=== PATIENT | male | born 1950 | race Caucasian/White ===

== ENCOUNTER → 2017-02-02 | Outpatient (CLI) | payer MEDICARE, OTHER ==
[2017-02-02 13:45] LABS: CHLORIDE,CL 103 mmol/L (98-110); SODIUM,NA 139 mmol/L (136-146)
--- NOTE | 2017-02-02 14:32 | CR ---
EXAMINATION: Two-view chest (PA and Lateral views). HISTORY: Type 2 diabetes. FINDINGS: The trachea is midline. The cardiomediastinal silhouette is within normal limits there is a trace le ft basilar atelectasis. No pleural effusion or pneumothorax. Median sternotomy wires are noted. Osseous structures appear unremarkable. IMPRESSION: No acute cardiopulmonary process.
== END ==
LOC: MW.CHIM 13:03
PROVIDERS: ATTEND Internal Medicine
DX: Z01.818 Encounter for other preprocedural examination (principal); E11.9 Type 2 diabetes mellitus without complications; I10 Essential (primary) hypertension; I25.10 Atherosclerotic heart disease of native coronary artery without angina pectoris; T14.8 Other injury of unspecified body region; I21.3 ST elevation (STEMI) myocardial infarction of unspecified site
CPT/HCPCS: 36415; 71020; 71020-26; 80053; 81001; 85025; 85610; 85730; 93005

== ENCOUNTER 2017-05-26 18:02 | Observation (INO) | payer MEDICARE, OTHER ==
[2017-05-26] MEDS ORDERED: Nitroglycerin 2% Oint 1 GM UD Packet TOP ONE (18:23)
[2017-05-26] MEDS ORDERED: Morphine 2 MG/ML Syringe IVPUSH ONE (18:23)
[2017-05-26] MEDS ORDERED: Sodium Chloride 0.9% 2.5 ML Syringe FLUSH PRN ×2 (18:23→22:29)
[2017-05-26] MEDS ORDERED: Ondansetron 4 MG/2 ML SDV IVPUSH ONE (18:23)
[2017-05-26] MEDS ORDERED: Sodium Chloride 0.9% 10 ML Syringe FLUSH PRN ×2 (18:23→22:29)
--- NOTE | 2017-05-26 18:26 | EDM.PDOC ---
ED HPI GENERAL MEDICAL PROBLEM - General Chief Complaint: Chest Pain Stated Complaint: CHEST PAIN Time Seen by Provider: 05/26/17 18:11 - History of Present Illness INITIAL COMMENTS - FREE TEXT/NARRATIVE: HISTORY AND PHYSICAL: History of present illness: Agent 66-year-old male presents a cardiac history including bypass surgery 15 years out who presents with concern of chest pain started earlier today for which gave him one sublingual nitroglycerin this was without improvement he equivocates regarding associated shortness breath palpitations nausea vomiting he did have a angiogram one year prior that was reported to be unremarkable her . Review of systems: As per history of present illness and below otherwise all systems reviewed and negative. Past medical history: As per history of present illness and as reviewed below otherwise noncontributory. Surgical history: As per history of present illness and as reviewed below otherwise noncontributory. Social history: No reported history of drug or alcohol abuse. Family history: As per history of present illness and as reviewed below otherwise noncontributory. Physical exam: HEENT: Atraumatic, normocephalic, pupils reactive, negative for conjunctival pallor or scleral icterus, mucous membranes moist, throat clear, neck supple, nontender, trachea midline. Lungs: Clear to auscultation, breath sounds equal bilaterally, chest nontender. Heart: S1S2, regular, negative for clicks, rubs, or JVD. Abdomen: Soft, nondistended, nontender. Negative for masses or hepatosplenomegaly. Negative for costovertebral tenderness. Pelvis: Stable nontender. Genitourinary: Deferred. Rectal: Deferred. Extremities: Atraumatic, negative for cords or calf pain. Neurovascular unremarkable. Neuro: Awake, alert, oriented. Cranial nerves II through XII unremarkable. Cerebellum unremarkable. Motor and sensory unremarkable throughout. Exam nonfocal. Diagnostics: CBC CMP troponin PT/INR chest x-ray EKG Therapeutics: IV O2 monitor sublingual nitroglycerin Nitropaste 1 inch morphine sulfate 2 mg Zofran 4 mg Impression: #1 acute coronary syndrome #2 history coronary bypass surgery Definitive disposition and diagnosis as appropriate pending reevaluation and review of above. - Related Data Allergies Allergy/AdvReac Type Severity Reaction Status Date / Time pear Allergy Shortness Verified 05/26/17 18:47 of Breath Home Meds: Home Meds Aspirin [Aspirin EC] 1 tab PO DAILY 11/29/15 [History] Carvedilol [Coreg] 1 tab PO BID 11/29/15 [History] FLUoxetine [PROzac] 40 mg PO DAILY 11/29/15 [History] Hydrochlorothiazide [Hydrochlorothiazide] 1 tab PO DAILY 11/29/15 [History] Nitroglycerin [Nitrostat] 1 tab PO ASDIRECTED PRN 11/29/15 [History] atorvaSTATin [Lipitor] 40 mg PO BEDTIME 11/29/15 [History] metFORMIN [Glucophage] 1,000 mg PO BIDMEALS 11/29/15 [History] traZODone 0.5 tab PO DAILY PRN 11/29/15 [History] Clopidogrel [Plavix] 75 mg PO DAILY 02/19/16 [History] Isosorbide Mononitrate [Imdur] 60 mg PO DAILY 05/07/16 [History] Ondansetron [Zofran ODT] 4 mg PO Q6H PRN #12 tab.dis 10/19/16 [Rx] Acetaminophen [Tylenol] 1 tab PO ASDIRECTED PRN 02/02/17 [History] Insulin Glarg,Human.Rec.Analog [LantUS Solostar] 24 units SUBCUT BEDTIME [History] Omeprazole 20 mg PO DAILY PRN 02/02/17 [History] traMADol HCl [Tramadol HCl] 50 mg PO ASDIRECTED PRN 02/02/17 [History] Past Medical History HEENT History: Reports: None Cardiovascular History: Reports: Bypass, CAD, High Cholesterol, Hypertension, [place] , Stents Respiratory History: Reports: None Gastrointestinal History: Reports: Other (See Below) Genitourinary History: Reports: None Neurological History: Reports: None Psychiatric History: Reports: None Endocrine/Metabolic History: Reports: Diabetes, Type II, Obesity/BMI 30+ Hematologic History: Reports: None Immunologic History: Reports: None Oncologic (Cancer) History: Reports: None Dermatologic History: Reports: None - Infectious Disease History Infectious Disease History: Reports: Chicken Pox, Measles, Mumps - Past Surgical History Cardiovascular Surgical History: Reports: Coronary Artery Bypass, Coronary Artery Stent Neurological Surgical History: Reports: C-Spine, Lumbar Spine Musculoskeletal Surgical History: Reports: Other (See Below) Social & Family History - Family History Family Medical History: Unobtainable HEENT: Reports: None - Tobacco Use Smoking Status *Q: Never Smoker Years of Tobacco use: 15 Used Tobacco, but Quit: No Second Hand Smoke Exposure: No - Caffeine Use Caffeine Use: Reports: Soda - Recreational Drug Use Recreational Drug Use: No ED ROS GENERAL - Review of Systems Review Of Systems: ROS reveals no pertinent complaints other than HPI. ED EXAM, GENERAL - Physical Exam Exam: See Below (See dictation) Course - Vital Signs Last Recorded V/S: Last Vital Signs Temp 36.1 C 05/26/17 18:10 Pulse 74 05/26/17 18:55 Resp 18 05/26/17 18:55 BP 121/71 05/26/17 18:55 Pulse Ox 96 05/26/17 18:55 - Orders/Labs/Meds Orders: Active Orders 24 hr Category Date Time Status Cardiac Monitoring [RC] . DIRECTED Care 05/26/17 18:22 Active EKG Documentation Completion [RC] STAT Care 05/26/17 18:22 Active Oxygen Therapy, ED [RC] ASDIRECTED Care 05/26/17 18:22 Active Pulse Oximetry [RC] ASDIRECTED Care 05/26/17 18:23 Active Chest 1V Frontal [CR] Stat Exams 05/26/17 18:23 Taken Sodium Chloride 0.9% [Normal Saline] 1,000 ml Med 05/26/17 18:30 Active IV STAT Sodium Chloride 0.9% [Saline Flush] Med 05/26/17 18:23 Active 10 ml FLUSH ASDIRECTED PRN Sodium Chloride 0.9% [Saline Flush] Med 05/26/17 18:23 Active 2.5 ml FLUSH ASDIRECTED PRN Saline Lock Insert [OM.PC] Stat Oth 05/26/17 18:22 Ordered Medication Orders Sodium Chloride (Normal Saline) 1,000 mls @ 125 mls/hr IV STAT BRITTA Last Admin: 05/26/17 18:33 Dose: 125 mls/hr Sodium Chloride (Saline Flush) 10 ml FLUSH ASDIRECTED PRN PRN Reason: Keep Vein Open Sodium Chloride (Saline Flush) 2.5 ml FLUSH ASDIRECTED PRN PRN Reason: Keep Vein Open Labs: Laboratory Tests 05/26/17 05/26/17 05/26/17 Range/Units 18:24 18:24 18:24 WBC 8.12 (4.0-11.0) K/uL RBC 4.95 (4.50-5.90) M/uL Hgb 15.1 (13.0-17.0) g/dL Hct 43.1 (38.0-50.0) % MCV 87.1 (80.0-98.0) fL MCH 30.5 (27.0-32.0) pg MCHC 35.0 (31.0-37.0) g/dL RDW Std Deviation 43.6 (28.0-62.0) fl RDW Coeff of Susan 14 (11.0-15.0) % Plt Count 199 (150-400) K/uL MPV 11.40 (7.40-12.00) fL Neut % (Auto) 52.3 (48.0-80.0) % Lymph % (Auto) 34.5 (16.0-40.0) % [place] % (Auto) 10.0 (0.0-15.0) % Eos % (Auto) 2.2 (0.0-7.0) % Baso % (Auto) 1.0 (0.0-1.5) % Neut # (Auto) 4.3 (1.4-5.7) K/uL Lymph # (Auto) 2.8 H (0.6-2.4) K/uL [place] # (Auto) 0.8 (0.0-0.8) K/uL Eos # (Auto) 0.2 (0.0-0.7) K/uL Baso # (Auto) 0.1 (0.0-0.1) K/uL Nucleated RBC % 0.0 /100WBC Nucleated RBCs # 0 K/uL INR 1.10 (0.86-1.11) Sodium 138 (136-146) mmol/L Potassium 3.5 (3.5-5.1) mmol/L Chloride 104 (98-110) mmol/L Carbon Dioxide 21 (21-31) mmol/L BUN 18 (6.0-23.0) mg/dL Creatinine 1.2 (0.6-1.5) mg/dL Est Cr Clr Drug Dosing 71.35 mL/min Estimated GFR (MDRD) > 60.0 ml/min Glucose 82 (60-110) mg/dL Calcium 9.8 (8.8-10.8) mg/dL Total Bilirubin 1.6 H (0.1-1.5) mg/dL AST 30 (5-40) IU/L ALT 10 (8-54) IU/L Alkaline Phosphatase 85 (40-150) Troponin I (0.0-0.29) NG/ML B-Natriuretic Peptide (<100) PG/ML Total Protein 7.9 (6.0-8.0) g/dL Albumin 4.4 (3.4-4.8) g/dL Globulin 3.5 (2.0-3.5) g/dL Albumin/Globulin Ratio 1.3 (1.3-2.8) 05/26/17 05/26/17 Range/Units 18:24 18:24 WBC (4.0-11.0) K/uL RBC (4.50-5.90) M/uL Hgb (13.0-17.0) g/dL Hct (38.0-50.0) % MCV (80.0-98.0) fL MCH (27.0-32.0) pg MCHC (31.0-37.0) g/dL RDW Std Deviation (28.0-62.0) fl RDW Coeff of Susan (11.0-15.0) % Plt Count (150-400) K/uL MPV (7.40-12.00) fL Neut % (Auto) (48.0-80.0) % Lymph % (Auto) (16.0-40.0) % [place] % (Auto) (0.0-15.0) % Eos % (Auto) (0.0-7.0) % Baso % (Auto) (0.0-1.5) % Neut # (Auto) (1.4-5.7) K/uL Lymph # (Auto) (0.6-2.4) K/uL [place] # (Auto) (0.0-0.8) K/uL Eos # (Auto) (0.0-0.7) K/uL Baso # (Auto) (0.0-0.1) K/uL Nucleated RBC % /100WBC Nucleated RBCs # K/uL INR (0.86-1.11) Sodium (136-146) mmol/L Potassium (3.5-5.1) mmol/L Chloride (98-110) mmol/L Carbon Dioxide (21-31) mmol/L BUN (6.0-23.0) mg/dL Creatinine (0.6-1.5) mg/dL Est Cr Clr Drug Dosing mL/min Estimated GFR (MDRD) ml/min Glucose (60-110) mg/dL Calcium (8.8-10.8) mg/dL Total Bilirubin (0.1-1.5) mg/dL AST (5-40) IU/L ALT (8-54) IU/L Alkaline Phosphatase (40-150) Troponin I < 0.10 (0.0-0.29) NG/ML B-Natriuretic Peptide < 15 (<100) PG/ML Total Protein (6.0-8.0) g/dL Albumin (3.4-4.8) g/dL Globulin (2.0-3.5) g/dL Albumin/Globulin Ratio (1.3-2.8) Meds: Medications Generic Name Dose Route Start Last Admin Trade Name Freq PRN Reason Stop Dose Admin Sodium Chloride 1,000 mls @ 125 mls/hr 05/26/17 18:30 05/26/17 18:33 Normal Saline IV 125 mls/hr STAT RBITTA Administration Sodium Chloride 10 ml 05/26/17 18:23 Saline Flush FLUSH ASDIRECTED PRN Keep Vein Open Sodium Chloride 2.5 ml 05/26/17 18:23 Saline Flush FLUSH ASDIRECTED PRN Keep Vein Open Discontinued Medications Generic Name Dose Route Start Last Admin Trade Name Freq PRN Reason Stop Dose Admin Morphine Sulfate 2 mg 05/26/17 18:23 05/26/17 18:32 Morphine IVPUSH 05/26/17 18:24 2 mg ONETIME ONE Administration Nitroglycerin 1 gm 05/26/17 18:23 05/26/17 18:43 Nitro-Bid 2% TOP 05/26/17 18:24 1 gm ONETIME ONE Administration Nitroglycerin 0.4 mg 05/26/17 18:23 05/26/17 18:37 Nitrostat SL 05/26/17 18:34 0.4 mg Q5M PRN Administration Chest Pain Ondansetron HCl 4 mg 05/26/17 18:23 05/26/17 18:33 Zofran IVPUSH 05/26/17 18:24 4 mg ONETIME ONE Administration Departure - Departure Time of Disposition: 19:15 Disposition: Refer to Observation Condition: Good Clinical Impression: Chest pain - Discharge Information Forms: ED Department Discharge - My Orders Last 24 Hours: My Active Orders 05/26/17 18:22 Cardiac Monitoring [RC] . DIRECTED EKG Documentation Completion [RC] STAT Oxygen Therapy, ED [RC] ASDIRECTED Saline Lock Insert [OM.PC] Stat 05/26/17 18:23 Pulse Oximetry [RC] ASDIRECTED Chest 1V Frontal [CR] Stat Sodium Chloride 0.9% [Saline Flush] 10 ml FLUSH ASDIRECTED PRN Sodium Chloride 0.9% [Saline Flush] 2.5 ml FLUSH ASDIRECTED PRN 05/26/17 18:30 Sodium Chloride 0.9% [Normal Saline] 1,000 ml IV STAT - Assessment/Plan Last 24 Hours: My Active Orders 05/26/17 18:22 Cardiac Monitoring [RC] . DIRECTED EKG Documentation Completion [RC] STAT Oxygen Therapy, ED [RC] ASDIRECTED Saline Lock Insert [OM.PC] Stat 05/26/17 18:23 Pulse Oximetry [RC] ASDIRECTED Chest 1V Frontal [CR] Stat Sodium Chloride 0.9% [Saline Flush] 10 ml FLUSH ASDIRECTED PRN Sodium Chloride 0.9% [Saline Flush] 2.5 ml FLUSH ASDIRECTED PRN 05/26/17 18:30 Sodium Chloride 0.9% [Normal Saline] 1,000 ml IV STAT
[2017-05-26] MEDS: Nitroglycerin 0.4 MG Tab.SL SL PRN ×2 (18:32→18:37)
[2017-05-26] MEDS: Sodium Chloride 0.9% 1,000 ML IV SCH (18:33)
[2017-05-26 19:03] LABS: CHLORIDE,CL 104 mmol/L (98-110); SODIUM,NA 138 mmol/L (136-146)
--- NOTE | 2017-05-26 22:25 | PCM.HP ---
H&P History of Present Illness - General Date of Service: 05/26/17 Admit Problem/Dx: Admission Diagnosis/Problem Admission Diagnosis/Problem Chest pain Source of Information: Patient, Provider - History of Present Illness Initial Comments - Free Text/Narative: He presented to the ED with complaint of chest pain as per HPI. He is pain free now. He has known prior history of CAD. chest pain Pain Score (Numeric/FACES): 2 - Related Data Allergies/Adverse Reactions: Allergies Allergy/AdvReac Type Severity Reaction Status Date / Time pear Allergy Shortness Verified 05/26/17 19:21 of Breath Home Medications: Home Meds Aspirin [Aspirin EC] 1 tab PO DAILY 11/29/15 [History] Carvedilol [Coreg] 1 tab PO BID 11/29/15 [History] FLUoxetine [PROzac] 40 mg PO DAILY 11/29/15 [History] Hydrochlorothiazide [Hydrochlorothiazide] 1 tab PO DAILY 11/29/15 [History] Nitroglycerin [Nitrostat] 1 tab PO ASDIRECTED PRN 11/29/15 [History] atorvaSTATin [Lipitor] 40 mg PO BEDTIME 11/29/15 [History] metFORMIN [Glucophage] 800 mg PO BIDMEALS 11/29/15 [History] traZODone 0.5 tab PO DAILY PRN 11/29/15 [History] Clopidogrel [Plavix] 75 mg PO DAILY 02/19/16 [History] Ondansetron [Zofran ODT] 4 mg PO Q6H PRN #12 tab.dis 10/19/16 [Rx] Acetaminophen [Tylenol] 1 tab PO ASDIRECTED PRN 02/02/17 [History] Insulin Glarg,Human.Rec.Analog [LantUS Solostar] 24 units SUBCUT BEDTIME [History] Omeprazole 20 mg PO DAILY PRN 02/02/17 [History] traMADol HCl [Tramadol HCl] 50 mg PO ASDIRECTED PRN 02/02/17 [History] Insulin Glarg,Human.Rec.Analog [LantUS Solostar] 19 unit SQ BEDTIME 05/26/17 [ History] Lisinopril [Lisinopril] 1 tab PO DAILY 05/26/17 [History] Past Medical History HEENT History: Reports: None Cardiovascular History: Reports: Bypass, CAD, High Cholesterol, Hypertension, [place] , Stents Respiratory History: Reports: Sleep Apnea Gastrointestinal History: Reports: None Genitourinary History: Reports: None Musculoskeletal History: Reports: Back Pain, Chronic, Other (See Below) Other Musculoskeletal History: right hip pain Neurological History: Reports: None Psychiatric History: Reports: None Endocrine/Metabolic History: Reports: Diabetes, Type II, Obesity/BMI 30+ Hematologic History: Reports: None Immunologic History: Reports: None Oncologic (Cancer) History: Reports: None Dermatologic History: Reports: None - Infectious Disease History Infectious Disease History: Reports: Chicken Pox, Measles, Mumps - Past Surgical History Head Surgeries/Procedures: Reports: None Cardiovascular Surgical History: Reports: Coronary Artery Bypass, Coronary Artery Stent Neurological Surgical History: Reports: C-Spine, Lumbar Spine Musculoskeletal Surgical History: Reports: Hip Replacement, Knee Replacement Social & Family History - Family History Family Medical History: Unobtainable HEENT: Reports: None - Tobacco Use Smoking Status *Q: Former Smoker Years of Tobacco use: 10 Used Tobacco, but Quit: Yes Month Tobacco Last Used: unknown Second Hand Smoke Exposure: No - Caffeine Use Caffeine Use: Reports: Coffee - Alcohol Use Alcohol Use Comment: he does not drink alcohol - Recreational Drug Use Recreational Drug Use: No H&P Review of Systems - Review of Systems: Review Of Systems: See Below General: Denies: Fever, Chills HEENT: Denies: Sinus Congestion, Sore Throat Pulmonary: Denies: Shortness of Breath, Cough, Sputum Cardiovascular: Reports: Chest Pain (as per HPI) Gastrointestinal: Denies: Abdominal Pain, Black Stool, Bloody Stool, Hematemesis , Hematochezia Genitourinary: Denies: Dysuria, Frequency, Pain, Urgency, Hematuria Skin: Denies: Cyanosis Psychiatric: Denies: Confusion Neurological: Denies: Seizure Exam - Exam Exam: See Below - Vital Signs Vital Signs: Last Vital Signs Temp 97 F 05/26/17 18:10 Pulse 68 05/26/17 20:38 Resp 18 05/26/17 20:38 BP 128/75 05/26/17 20:38 Pulse Ox 95 05/26/17 20:38 Weight: 118.025 kg - Exam General: Alert, Oriented, Cooperative HEENT: EOMI. No: Mucosa Moist & [place] Lungs: No: Clear to Auscultation, Normal Respiratory Effort Cardiovascular: No: Regular Rate, Regular Rhythm, Systolic Murmur, Diastolic Murmur Abdomen: Soft. No: Tenderness (Male) Exam: Deferred Rectal (Males) Exam: Deferred Extremities: No: Edema Neurological: Cranial Nerves Intact, Normal Speech Neuro Extensive - Motor, Sensory, Reflexes: No: Ataxia, Facial palsy (L), Facial Palsy (R) - Patient Data Result Diagrams: 05/26/17 18:24 05/26/17 18:24 Isaiah Results Last 24 hrs: EKG: NSR with prolonged MS interval CXR: No acute disease *Q Meaningful Use (ADM) - VTE *Q VTE Criteria *Q: - Stroke *Q Stroke Criteria *Q: - AMI *Q AMI Criteria *Q: - Problem List (1) Chest pain SNOMED Code(s): 01681357 ICD Code: R07.9 - CHEST PAIN, UNSPECIFIED Status: Acute Current Visit: Yes (2) CAD (coronary artery disease) SNOMED Code(s): 12531623 ICD Code: I25.10 - ATHSCL HEART DISEASE OF [place] CORONARY ARTERY W/O ANG PCTRS Status: Acute Current Visit: Yes Problem List Initiated/Reviewed/Updated: Yes Orders Last 24hrs: Medication Orders Sodium Chloride (Normal Saline) 1,000 mls @ 125 mls/hr IV STAT BRITTA Last Admin: 05/26/17 18:33 Dose: 125 mls/hr Sodium Chloride (Saline Flush) 10 ml FLUSH ASDIRECTED PRN PRN Reason: Keep Vein Open Sodium Chloride (Saline Flush) 2.5 ml FLUSH ASDIRECTED PRN PRN Reason: Keep Vein Open Assessment/Plan Comment:: troponins will discuss with 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 Jace Valladares MD
[2017-05-26] MEDS ORDERED: Temazepam 15 MG Cap PO PRN (22:29)
[2017-05-26] MEDS ORDERED: Docusate Sodium 100 MG Cap PO PRN (22:29)
[2017-05-26] MEDS ORDERED: Acetaminophen 325 MG Tab PO PRN (22:29)
[2017-05-26] MEDS ORDERED: Omeprazole 20 MG Cap.CR PO PRN (22:32)
[2017-05-26] MEDS ORDERED: Nitroglycerin 0.4 MG Tab.SL SL PRN (22:32)
[2017-05-26] MEDS ORDERED: traMADol 50 MG Tab PO PRN (22:32)
[2017-05-26] MEDS: Nitroglycerin 2% Oint 1 GM UD Packet TOP SCH (23:47)
[2017-05-27] MEDS: Sodium Chloride 0.9% 1,000 ML IV SCH ×2 (03:02→10:41)
[2017-05-27 05:49] LABS: CHLORIDE,CL 106 mmol/L (98-110); SODIUM,NA 141 mmol/L (136-146)
[2017-05-27] MEDS: Nitroglycerin 2% Oint 1 GM UD Packet TOP SCH ×2 (05:50→12:25)
[2017-05-27] MEDS ORDERED: Insulin Glargine,Human Rec. Analog 100 Units/ML 3 ML Pen SUBCUT SCH ×2 (07:30→21:00)
[2017-05-27] MEDS ORDERED: metFORMIN 500 MG Tab PO SCH (08:00)
[2017-05-27] MEDS ORDERED: Isosorbide Mononitrate 60 MG Tab.ER PO SCH (09:00)
[2017-05-27] MEDS ORDERED: Clopidogrel 75 MG Tab PO SCH (09:00)
[2017-05-27] MEDS ORDERED: Hydrochlorothiazide 25 MG Tab PO SCH (09:00)
[2017-05-27] MEDS ORDERED: Aspirin 325 MG Tab.EC PO SCH (09:00)
[2017-05-27] MEDS ORDERED: Carvedilol 12.5 MG Tab PO SCH (09:00)
[2017-05-27] MEDS ORDERED: FLUoxetine 20 MG Cap PO SCH (09:00)
[2017-05-27] MEDS ORDERED: Lisinopril 5 MG Tab PO SCH (09:00)
--- NOTE | 2017-05-27 10:18 | CR ---
EXAM DATE: 05/26/17 PATIENT'S AGE: 66 Patient: AMADOR GARCIA Facility: [place], [place] Site . Site : [id number] Study: XRay Chest [id number]/27/2017 7:12:11 PM Ordering Physician: Ashley Christianson Final Report: Indication: Chest and Technique: Chest 1 view Comparison: 02/02/2017 Findings/Impression: Cardiovascular and mediastinum: Stable cardiomediastinal silhouette. Sternotomy sutures again seen. Lungs and pleural space: No consolidation or gross pleural effusions. Bones and soft tissues: Postsurgical changes in the lower cervical spine Dictated by Herminio Hyde MD @ 05/26/2017 7:35:09 PM Dictated by: Herminio Hyde MD @ 05/26/2017 19:35:21 (Electronic Signature) Report Signed by Proxy. SHANAE
--- NOTE | 2017-05-27 13:00 | PCM.DCSUM1 ---
Discharge Summary - Hospital Course HPI Initial Comments: 66 yo male admitted 05/26/17 for atypical chest pain with pmh of CABG, Htn, dylipidemia. Brief History: Patient intially presented to ED on 05/26/17 for chest pain that had started earilier that day. He reported substernal chest pain without radiation and no associate shortness of breath, palpitations, nausea, or vomiting. His gave him one sublingual nitroglycerin which did not seem to help. He has history of CABG 15 yrs ago and reported that he had an angiogram 1 year ago that was reported to be unremarkable. He did admit to feeling "very stressed" lately and thinks this may have been what started the chest pain. The pain was not similar to previous episodes when he had his CT. - Discharge Data Discharge Date: 05/27/17 Discharge Disposition: Home, Self-Care 01 Condition: Good - Patient Summary/Data Hospital Course: 66 yo male admitted 05/26/17 for atypical chest pain with pmh of CABG, Htn, dylipidemia. Patient intially presented to ED on 05/26/17 for chest pain that had started earilier that day. He reported substernal chest pain without radiation and no associate shortness of breath, palpitations, nausea, or vomiting. His gave him one sublingual nitroglycerin which did not seem to help. He has history of CABG 15 yrs ago and reported that he had an angiogram 1 year ago that was reported to be unremarkable. He did admit to feeling "very stressed" lately and thinks this may have been what started the chest pain. The pain was not similar to previous episodes when he had his CT. In ED, initial troponin was negative. ECG showed no acute ischemic changes and rest of labs were unremarkable. Patient was admitted for observation and serial troponins. Patient did well throughout his stay with no additional chest pain. Serial troponins were negative. He was discharged in good condition with follow-up with his PCP Dr. Asif as well as Dr. Luz, guide cruise. We did try to contact Dr. Luz but he was unavailable. Chest pain was most likely stress related however patient does have significant cardiac history so should be followed closely. - Patient Instructions Diet: Heart Healthy Diet Activity: Rest and Relax Today Driving: Do Not Drive Showering/Bathing: May Shower Notify Provider of: Fever, Increased Pain, Swelling and Redness, Nausea and/or Vomiting Other/Special Instructions: Follow-up with Dr. Asif and Dr. Luz. Return to ED if having new symptoms. - Discharge Plan Home Medications: Home Meds Aspirin [Aspirin EC] 1 tab PO DAILY 11/29/15 [History] Carvedilol [Coreg] 1 tab PO BID 11/29/15 [History] FLUoxetine [PROzac] 20 mg PO DAILY 11/29/15 [History] Hydrochlorothiazide 1 tab PO DAILY 11/29/15 [History] Nitroglycerin [Nitrostat] 1 tab PO ASDIRECTED PRN 11/29/15 [History] atorvaSTATin [Lipitor] 40 mg PO BEDTIME 11/29/15 [History] metFORMIN [Glucophage] 1,000 mg PO BIDMEALS 11/29/15 [History] traZODone 0.5 tab PO DAILY PRN 11/29/15 [History] Clopidogrel [Plavix] 75 mg PO DAILY 02/19/16 [History] Ondansetron [Zofran ODT] 4 mg PO Q6H PRN #12 tab.dis 10/19/16 [Rx] Acetaminophen [Tylenol] 1 tab PO ASDIRECTED PRN 02/02/17 [History] Insulin Glarg,Human.Rec.Analog [LantUS Solostar] 24 units SUBCUT BEDTIME [History] Omeprazole 20 mg PO DAILY PRN 02/02/17 [History] traMADol HCl [Tramadol HCl] 50 mg PO ASDIRECTED PRN 02/02/17 [History] Insulin Glarg,Human.Rec.Analog [LantUS Solostar] 38 unit SQ ACBREAKFAST [History] Isosorbide Mononitrate [Isosorbide Mononitrate ER] 60 mg PO DAILY 05/26/17 [ History] Lisinopril 1 tab PO DAILY 05/26/17 [History] Patient Handouts: Coronary Artery Disease, Male, Chest Wall Pain, [id number] Forms: ED Department Discharge Referrals: Marcela Fernandez MD [Ordering Only Provider] - 06/04/17 2:30 pm Dino Asif MD [Primary Care Provider] - 06/04/17 8:30 am - Discharge Summary/Plan Comment DC Time >30 min.: Yes Discharge Summary/Plan Comment: 66 yo male admitted 05/26/17 for atypical chest pain with pmh of CABG, Htn, dylipidemia. Patient intially presented to ED on 05/26/17 for chest pain that had started earilier that day. He reported substernal chest pain without radiation and no associate shortness of breath, palpitations, nausea, or vomiting. His gave him one sublingual nitroglycerin which did not seem to help. He has history of CABG 15 yrs ago and reported that he had an angiogram 1 year ago that was reported to be unremarkable. He did admit to feeling "very stressed" lately and thinks this may have been what started the chest pain. The pain was not similar to previous episodes when he had his CT. In ED, initial troponin was negative. ECG showed no acute ischemic changes and rest of labs were unremarkable. Patient was admitted for observation and serial troponins. Patient did well throughout his stay with no additional chest pain. Serial troponins were negative. He was discharged in good condition with follow-up with his PCP Dr. Asif as well as Dr. Luz, guide cruise. We did try to contact Dr. Luz but he was unavailable. Chest pain was most likely stress related however patient does have significant cardiac history so should be followed closely. - General Info Date of Service: 05/27/17 Admission Dx/Problem (Free Text: Admission Diagnosis/Problem Admission Diagnosis/Problem Chest pain Subjective Update: Doing well this morning with no further episodes of chest pain. Denies any sob , palpitations, nausea, vomiting, diarrhea, abd pain. Feeling well and would like to be discharged. - Review of Systems General: Denies: Fever, Weakness, Fatigue HEENT: Denies: dysphasia, sinus congestion Pulmonary: Denies: shortness of breath, pleuritic chest pain, cough, sputum Cardiovascular: Denies: Chest Pain, Palpitations Gastrointestinal: Denies: Abdominal pain, Constipation, Diarrhea, Vomiting Genitourinary: Denies: dysuria Musculoskeletal: Denies: neck pain, back pain Skin: Denies: cyanosis Neurological: Denies: Confusion, Dizziness, Headache Psychiatric: Denies: confusion - Patient Data Vitals - Most Recent: Last Vital Signs Temp 36.0 C 05/27/17 08:00 Pulse 72 05/27/17 08:51 Resp 22 H 05/27/17 08:00 BP 156/68 H 05/27/17 08:51 Pulse Ox 97 05/27/17 08:00 Weight - Most Recent: 118.025 kg I&O - Last 24 hours: Intake & Output 05/26/17 05/27/17 05/27/17 22:59 06:59 14:59 Intake Total 1892 Output Total 740 Balance 1152 Lab Results - Last 24 hrs: Laboratory Results - last 24 hr 05/26/17 05/26/17 05/27/17 Range/Units 22:53 23:25 05:08 WBC (4.0-11.0) K/uL RBC (4.50-5.90) M/uL Hgb (13.0-17.0) g/dL Hct (38.0-50.0) % MCV (80.0-98.0) fL MCH (27.0-32.0) pg MCHC (31.0-37.0) g/dL RDW Std Deviation (28.0-62.0) fl RDW Coeff of Susan (11.0-15.0) % Plt Count (150-400) K/uL MPV (7.40-12.00) fL Neut % (Auto) (48.0-80.0) % Lymph % (Auto) (16.0-40.0) % Caswell % (Auto) (0.0-15.0) % Eos % (Auto) (0.0-7.0) % Baso % (Auto) (0.0-1.5) % Neut # (Auto) (1.4-5.7) K/uL Lymph # (Auto) (0.6-2.4) K/uL Caswell # (Auto) (0.0-0.8) K/uL Eos # (Auto) (0.0-0.7) K/uL Baso # (Auto) (0.0-0.1) K/uL Nucleated RBC % /100WBC Nucleated RBCs # K/uL Sodium (136-146) mmol/L Potassium (3.5-5.1) mmol/L Chloride (98-110) mmol/L Carbon Dioxide (21-31) mmol/L BUN (6.0-23.0) mg/dL Creatinine (0.6-1.5) mg/dL Est Cr Clr Drug Dosing mL/min Estimated GFR (MDRD) ml/min Glucose (60-110) mg/dL POC Glucose 230 H (60-110) mg/dL Calcium (8.8-10.8) mg/dL Magnesium (1.5-2.3) mEq/L Troponin I < 0.10 < 0.10 (0.0-0.29) NG/ML 05/27/17 05/27/17 05/27/17 Range/Units 05:08 05:08 06:31 WBC 5.80 (4.0-11.0) K/uL RBC 4.46 L (4.50-5.90) M/uL Hgb 13.3 (13.0-17.0) g/dL Hct 39.2 (38.0-50.0) % MCV 87.9 (80.0-98.0) fL MCH 29.8 (27.0-32.0) pg MCHC 33.9 (31.0-37.0) g/dL RDW Std Deviation 44.5 (28.0-62.0) fl RDW Coeff of Susan 14 (11.0-15.0) % Plt Count 146 L (150-400) K/uL MPV 11.60 (7.40-12.00) fL Neut % (Auto) 53.4 (48.0-80.0) % Lymph % (Auto) 32.8 (16.0-40.0) % Caswell % (Auto) 10.0 (0.0-15.0) % Eos % (Auto) 2.6 (0.0-7.0) % Baso % (Auto) 1.2 (0.0-1.5) % Neut # (Auto) 3.1 (1.4-5.7) K/uL Lymph # (Auto) 1.9 (0.6-2.4) K/uL Caswell # (Auto) 0.6 (0.0-0.8) K/uL Eos # (Auto) 0.2 (0.0-0.7) K/uL Baso # (Auto) 0.1 (0.0-0.1) K/uL Nucleated RBC % 0.0 /100WBC Nucleated RBCs # 0 K/uL Sodium 141 (136-146) mmol/L Potassium 4.1 (3.5-5.1) mmol/L Chloride 106 (98-110) mmol/L Carbon Dioxide 25 (21-31) mmol/L BUN 18 (6.0-23.0) mg/dL Creatinine 1.0 (0.6-1.5) mg/dL Est Cr Clr Drug Dosing 85.63 mL/min Estimated GFR (MDRD) > 60.0 ml/min Glucose 93 (60-110) mg/dL POC Glucose 89 (60-110) mg/dL Calcium 8.6 L (8.8-10.8) mg/dL Magnesium 1.5 (1.5-2.3) mEq/L Troponin I (0.0-0.29) NG/ML Med Orders - Current: Current Medications Acetaminophen (Tylenol) 650 mg PO Q4H PRN PRN Reason: Pain (Mild 1-3)/fever Aspirin (Ecotrin) 325 mg PO DAILY [facility] Last Admin: 05/27/17 08:50 Dose: 325 mg Atorvastatin Calcium (Lipitor) 40 mg PO BEDTIME [facility] Carvedilol (Coreg) 12.5 mg PO BID [facility] Last Admin: 05/27/17 08:51 Dose: 12.5 mg Clopidogrel Bisulfate (Plavix) 75 mg PO DAILY [facility] Last Admin: 05/27/17 08:50 Dose: 75 mg Docusate Sodium (Colace) 100 mg PO BID PRN PRN Reason: Constipation Fluoxetine HCl (Prozac) 20 mg PO DAILY [facility] Last Admin: 05/27/17 08:51 Dose: 20 mg Hydrochlorothiazide (Hydrochlorothiazide) 25 mg PO DAILY [facility] Last Admin: 05/27/17 08:50 Dose: 25 mg Sodium Chloride (Normal Saline) 1,000 mls @ 125 mls/hr IV STAT [facility] Last Admin: 05/27/17 10:41 Dose: 125 mls/hr Insulin Glargine (Lantus Solostar) 24 units SUBCUT BEDTIME [facility] Insulin Glargine (Lantus Solostar) 38 units SUBCUT ACBREAKFAST [facility] Last Admin: 05/27/17 06:37 Dose: Not Given Isosorbide Mononitrate (Imdur) 60 mg PO DAILY [facility] Last Admin: 05/27/17 08:50 Dose: 60 mg Lisinopril (Prinivil) 5 mg PO DAILY [facility] Last Admin: 05/27/17 08:51 Dose: 5 mg Metformin HCl (Glucophage) 1,000 mg PO BIDMEALS [facility] Last Admin: 05/27/17 08:50 Dose: 1,000 mg Nitroglycerin (Nitrostat) 0.4 mg SL ASDIRECTED PRN PRN Reason: Chest Pain Nitroglycerin (Nitro-Bid 2%) 1 gm TOP Q6H [facility] Last Admin: 05/27/17 12:25 Dose: Not Given Omeprazole (Omeprazole) 20 mg PO DAILY PRN PRN Reason: Heartburn Sodium Chloride (Saline Flush) 10 ml FLUSH ASDIRECTED PRN PRN Reason: Keep Vein Open Sodium Chloride (Saline Flush) 2.5 ml FLUSH ASDIRECTED PRN PRN Reason: Keep Vein Open Temazepam (Restoril) 15 mg PO BEDTIME PRN PRN Reason: Sleep Tramadol HCl (Ultram) 50 mg PO Q4H PRN PRN Reason: Pain Discontinued Medications Morphine Sulfate (Morphine) 2 mg IVPUSH ONETIME ONE Stop: 05/26/17 18:24 Last Admin: 05/26/17 18:32 Dose: 2 mg Nitroglycerin (Nitro-Bid 2%) 1 gm TOP ONETIME ONE Stop: 05/26/17 18:24 Last Admin: 05/26/17 18:43 Dose: 1 gm Nitroglycerin (Nitrostat) 0.4 mg SL Q5M PRN PRN Reason: Chest Pain Stop: 05/26/17 18:34 Last Admin: 05/26/17 18:37 Dose: 0.4 mg Ondansetron HCl (Zofran) 4 mg IVPUSH ONETIME ONE Stop: 05/26/17 18:24 Last Admin: 05/26/17 18:33 Dose: 4 mg Sodium Chloride (Saline Flush) 10 ml FLUSH ASDIRECTED PRN PRN Reason: Keep Vein Open Sodium Chloride (Saline Flush) 2.5 ml FLUSH ASDIRECTED PRN PRN Reason: Keep Vein Open - Exam Quality Assessment: Reports: DVT prophylaxis General: Reports: alert, oriented, cooperative, no acute distress HEENT: Reports: Pupils equal, Pupils reactive, EOMI, Mucous membr. moist/pink Neck: Reports: supple Lungs: Reports: Clear to auscultation, Normal respiratory effort Cardiovascular: Reports: Regular Rate, Regular Rhythm Abdomen: Reports: bowel sounds present, soft, no tenderness, no distension (Male) Exam: No Hernia, Normal Inspection, Normal Prostate, Circumcised Rectal (Males) Exam: Normal Exam, Normal Rectal Tone, Prostate Normal Back Exam: Reports: Normal Inspection Extremities: Reports: no edema, normal pulses Skin: Reports: warm, dry, intact Neurological: Reports: no new focal deficit Psy/Mental Status: Reports: alert, normal affect, normal mood *Q Meaningful Use (DIS) - VTE *Q VTE Criteria *Q: - Stroke *Q Stroke Criteria *Q: - AMI *Q AMI Criteria *Q:
[2017-05-27 14:02] VITALS: BP 116/58
[2017-05-27] MEDS ORDERED: atorvaSTATin 40 MG Tab PO SCH (21:00)
== END 2017-05-27 13:40 | disposition home or self-care (01) ==
LOC: MW.ED 18:02 → MW.MS 19:16
PROVIDERS: ADMIT Family Medicine; ATTEND Family Medicine
DX: R07.2 Precordial pain (principal); I25.10 Atherosclerotic heart disease of native coronary artery without angina pectoris; I25.2 Old myocardial infarction; I10 Essential (primary) hypertension; E78.00 Pure hypercholesterolemia, unspecified; G47.30 Sleep apnea, unspecified; M54.9 Dorsalgia, unspecified; G89.29 Other chronic pain; E11.9 Type 2 diabetes mellitus without complications; E66.9 Obesity, unspecified; Z87.891 Personal history of nicotine dependence; Z79.02 Long term (current) use of antithrombotics/antiplatelets; Z79.82 Long term (current) use of aspirin; Z79.4 Long term (current) use of insulin; Z79.84 Long term (current) use of oral hypoglycemic drugs; Z79.899 Other long term (current) drug therapy; Z95.1 Presence of aortocoronary bypass graft; Z95.5 Presence of coronary angioplasty implant and graft; Z96.649 Presence of unspecified artificial hip joint; Z96.659 Presence of unspecified artificial knee joint; Z98.890 Other specified postprocedural states
CPT/HCPCS: 36415; 71010; 80048; 80053; 82962; 83735; 83880; 84484; 85025; 85610; 93005; 96361; 96374; 96375; 99285; A9270; G0378; J1815; J2270; J2405; J7040; 99284

== ENCOUNTER 2018-05-31 15:11 | Observation (INO) | payer MEDICARE, OTHER ==
[2018-05-31] MEDS ORDERED: Sodium Chloride 0.9% 1,000 ML IV ONE (15:23)
[2018-05-31] MEDS ORDERED: Sodium Chloride 0.9% 2.5 ML Syringe FLUSH PRN (15:23)
[2018-05-31] MEDS ORDERED: Famotidine 20 MG/2 ML SDV IVPUSH ONE (15:23)
[2018-05-31] MEDS ORDERED: Ketorolac 30 MG/ML SDV IVPUSH ONE (15:23)
[2018-05-31] MEDS ORDERED: Nitroglycerin 0.4 MG Tab.SL SL ONE (15:23)
[2018-05-31] MEDS ORDERED: Aspirin 81 MG Tab.Chew PO ONE (15:23)
[2018-05-31] MEDS ORDERED: Sodium Chloride 0.9% 10 ML Syringe FLUSH PRN (15:23)
--- NOTE | 2018-05-31 15:23 | EDM.PDOC ---
ED HPI GENERAL MEDICAL PROBLEM - General Chief Complaint: Respiratory Problem Stated Complaint: TROUBLE BREATHING Time Seen by Provider: 05/31/18 15:21 Source of Information: Reports: Patient - History of Present Illness INITIAL COMMENTS - FREE TEXT/NARRATIVE: HISTORY AND PHYSICAL: []Patient presented to the emergency room with respiratory distress and chest pressure History of Present Illness: []Patient was mowing his lawn and started having respiratory distress chest pressure he does have history of CABG times [address] 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 History coronary artery disease Irregular heart rate History chronic back pain and waiting Normal patient can only walk about 20 yards then he must use crutches and/or scooter to maneuver Patient is a type II diabetic that is on Lantus Review of Systems: As per history of present illness and below otherwise all systems reviewed and negative. Past medical history: As per history of present illness and as reviewed below otherwise noncontributory. Surgical history: As per history of present illness and as reviewed below otherwise noncontributory. Social history: No reported history of drug or alcohol abuse. Family history: As per history of present illness and as reviewed below otherwise noncontributory. Physical exam: Oriented male answering questions appropriately in full sentences with mild shortness of breath, and HEENT: Atraumatic, normocehpalic, pupils reactive, negative for conjunctival pallor or scleral icterus, mucous membranes moist, throat clear, neck supple, nontender, trachea midline. Lungs: Clear to auscultation, breath sounds equal bilaterally, chest non tender. Heart: S1S2, regular, negative for clicks, rubs, or JVD. Abdomen: Soft, nondistended, nontender. Negative for masses or hepatossplenmegaly. Negative for costovertebral tenderness. Pelvis: Stable nontender. Genitourinary: Deferred. Rectal: Deferred Extremities: Atraumatic, negative for cords or calf pain. Neurovascular unremarkable. Neuro: Awake, alert, oriented. Cranial nerves II through XII unremarkable. Cerebellum unremarkable. Motor and sensory unremarkable throughout. Exam nonfocal. After 5 minutes upon arrival patient was pain-free respiratory status normal. Have discussed lab results with the patient he has returned to his normal baseline at this time Discussed my concerns with him on reevaluation and recommendation for him to be evaluated for the next 24 hours on telemetry and he is agreeable to this course of action Diagnostics: []CBC CMP amylase lipase troponin EKG chest x-ray Therapeutics: []IV fluid aspirin Impression: []Respiratory distress and chest pain Plan: []refer to observation/telemetry. Definitive disposition and diagnosis as appropriate pending reevaluation and review of above. Onset: Today, Sudden Duration: Heavy Location: Reports: Chest Quality: Reports: Ache, Pressure Severity: Mild Improves with: Reports: None Worsens with: Reports: None Associated Symptoms: Reports: Chest Pain - Related Data Allergies Allergy/AdvReac Type Severity Reaction Status Date / Time pear Allergy Shortness Verified 05/31/18 15:19 of Breath Home Meds: Home Meds Aspirin [Aspirin EC] 325 mg PO DAILY 11/29/15 [History] Carvedilol [Coreg] 12.5 tab PO BID 11/29/15 [History] FLUoxetine [PROzac] 40 mg PO DAILY 11/29/15 [History] Hydrochlorothiazide 25 mg PO DAILY 11/29/15 [History] Nitroglycerin [Nitrostat] 1 tab PO Q5M PRN MDD 3 11/29/15 [History] atorvaSTATin [Lipitor] 40 mg PO BEDTIME 11/29/15 [History] metFORMIN [Glucophage] 850 mg PO BIDMEALS 11/29/15 [History] traZODone 0.5 tab PO BEDTIME PRN 11/29/15 [History] Clopidogrel [Plavix] 75 mg PO DAILY 02/19/16 [History] Ondansetron [Zofran ODT] 4 mg PO Q6H PRN #12 tab.dis 10/19/16 [Rx] Acetaminophen [Tylenol] 325 mg PO ASDIRECTED PRN 02/02/17 [History] Omeprazole 20 mg PO ACBREAKFAST 02/02/17 [History] traMADol HCl [Tramadol HCl] 50 mg PO TID PRN 02/02/17 [History] Isosorbide Mononitrate [Isosorbide Mononitrate ER] 60 mg PO DAILY 05/26/17 [ History] Insulin Glarg,Human.Rec.Analog [Lantus Solostar] 36 unit SUBCUT DAILY 05/31/18 [ History] Past Medical History HEENT History: Reports: None Cardiovascular History: Reports: Bypass, CAD, High Cholesterol, Hypertension, [place] , Stents Respiratory History: Reports: Sleep Apnea Gastrointestinal History: Reports: None Genitourinary History: Reports: None Musculoskeletal History: Reports: Back Pain, Chronic, Neck Pain, Chronic, Other (See Below) Other Musculoskeletal History: right hip pain Neurological History: Reports: None Psychiatric History: Reports: None Endocrine/Metabolic History: Reports: Diabetes, Type II, Obesity/BMI 30+ Hematologic History: Reports: None Immunologic History: Reports: None Oncologic (Cancer) History: Reports: None Dermatologic History: Reports: None - Infectious Disease History Infectious Disease History: Reports: Chicken Pox, Measles, Mumps - Past Surgical History Head Surgeries/Procedures: Reports: None Cardiovascular Surgical History: Reports: Coronary Artery Bypass, Coronary Artery Stent Neurological Surgical History: Reports: C-Spine, Lumbar Spine Musculoskeletal Surgical History: Reports: Hip Replacement, Knee Replacement, Other (See Below) Other Musculoskeletal Surgeries/Procedures:: wrist surgery. surgery on hamstrings Social & Family History - Family History Family Medical History: Unobtainable HEENT: Reports: None - Caffeine Use Caffeine Use: Reports: Coffee ED ROS GENERAL - Review of Systems Review Of Systems: ROS reveals no pertinent complaints other than HPI. ED EXAM, GENERAL - Physical Exam Exam: See Below (see dictation) EKG INTERPRETATION EKG Date: 05/31/18 Rhythm: NSR Course - Vital Signs Last Recorded V/S: Last Vital Signs Temp 36.6 C 05/31/18 20:00 Pulse 63 05/31/18 20:00 Resp 19 05/31/18 20:00 BP 128/62 05/31/18 20:00 Pulse Ox 95 05/31/18 20:00 - Orders/Labs/Meds Orders: Active Orders 24 hr Category Date Time Status Oxygen Therapy [RC] ASDIRECTED Care 05/31/18 15:23 Active Pulse Oximetry [RC] ASDIRECTED Care 05/31/18 15:23 Active UA W/MICROSCOPIC [URIN] Stat Lab 05/31/18 16:14 Ordered Sodium Chloride 0.9% [Saline Flush] Med 05/31/18 15:23 Active 10 ml FLUSH ASDIRECTED PRN Sodium Chloride 0.9% [Saline Flush] Med 05/31/18 15:23 Active 2.5 ml FLUSH ASDIRECTED PRN Saline Lock Insert [OM.PC] Stat Oth 05/31/18 15:23 Ordered Medication Orders Acetaminophen (Tylenol) 650 mg PO Q4H PRN PRN Reason: Pain (mild 1-3) Albuterol (Proventil Neb Soln) 2.5 mg NEB Q2HR PRN PRN Reason: Shortness Of Breath/wheezing Aspirin (Ecotrin) 325 mg PO DAILY [facility] Atorvastatin Calcium (Lipitor) 40 mg PO BEDTIME [facility] Last Admin: 05/31/18 20:00 Dose: 40 mg Carvedilol (Coreg) 12.5 mg PO BIDMEALS [facility] Last Admin: 05/31/18 17:39 Dose: 12.5 mg Clopidogrel Bisulfate (Plavix) 75 mg PO DAILY [facility] Fluoxetine HCl (Prozac) 40 mg PO DAILY [facility] Hydrochlorothiazide (Hydrochlorothiazide) 25 mg PO DAILY [facility] Insulin Aspart (Novolog) 0 unit SUBCUT TIDAC [facility]; Protocol Last Admin: 05/31/18 17:34 Dose: Insulin Glargine (Lantus Solostar) 36 units SUBCUT DAILY [facility] Isosorbide Mononitrate (Imdur) 60 mg PO DAILY [facility] Omeprazole (Omeprazole) 20 mg PO ACBREAKFAST [facility] Ondansetron HCl (Zofran) 4 mg IVPUSH Q4H PRN PRN Reason: Nausea Sodium Chloride (Saline Flush) 10 ml FLUSH ASDIRECTED PRN PRN Reason: Keep Vein Open Sodium Chloride (Saline Flush) 2.5 ml FLUSH ASDIRECTED PRN PRN Reason: Keep Vein Open Tramadol HCl (Ultram) 50 mg PO TID PRN PRN Reason: Pain Trazodone HCl (Trazodone) 50 mg PO BEDTIME PRN PRN Reason: Insomnia Labs: Laboratory Tests 05/31/18 05/31/18 05/31/18 Range/Units 15:20 15:20 15:20 WBC 5.31 (4.0-11.0) K/uL RBC 4.85 (4.50-5.90) M/uL Hgb 15.3 (13.0-17.0) g/dL Hct 42.6 (38.0-50.0) % MCV 87.8 (80.0-98.0) fL MCH 31.5 (27.0-32.0) pg MCHC 35.9 (31.0-37.0) g/dL RDW Std Deviation 43.2 (28.0-62.0) fl RDW Coeff of Susan 14 (11.0-15.0) % Plt Count 172 (150-400) K/uL MPV 10.80 (7.40-12.00) fL Neut % (Auto) 65.7 (48.0-80.0) % Lymph % (Auto) 21.3 (16.0-40.0) % Lamar % (Auto) 8.1 (0.0-15.0) % Eos % (Auto) 4.1 (0.0-7.0) % Baso % (Auto) 0.8 (0.0-1.5) % Neut # (Auto) 3.5 (1.4-5.7) K/uL Lymph # (Auto) 1.1 (0.6-2.4) K/uL Lam[place] # (Auto) 0.4 (0.0-0.8) K/uL Eos # (Auto) 0.2 (0.0-0.7) K/uL Baso # (Auto) 0.0 (0.0-0.1) K/uL Nucleated RBC % 0.0 /100WBC Nucleated RBCs # 0 K/uL INR 1.12 Sodium 139 (136-148) mmol/L Potassium 3.3 L (3.5-5.1) mmol/L Chloride 102 (98-107) mmol/L Carbon Dioxide 27.5 (21.0-32.0) mmol/L BUN 20 H (7.0-18.0) mg/dL Creatinine 1.3 (0.8-1.3) mg/dL Est Cr Clr Drug Dosing 68.62 mL/min Estimated GFR (MDRD) 55.2 ml/min Glucose 200 H (74-106) mg/dL Calcium 8.9 (8.5-10.1) mg/dL Total Bilirubin 1.6 H (0.2-1.0) mg/dL AST 32 (15-37) IU/L ALT 18 (14-63) IU/L Alkaline Phosphatase 81 (46-116) U/L Troponin I < 0.050 (0.000-0.056) ng/mL Total Protein 7.5 (6.4-8.2) g/dL Albumin 3.8 (3.4-5.0) g/dL Globulin 3.7 H (2.0-3.5) g/dL Albumin/Globulin Ratio 1.0 L (1.3-2.8) Amylase 41 (25-115) U/L Lipase 118 (73-393) U/L Urine Color Urine Appearance Urine pH (5.0-8.0) Ur Specific [place] (1.001-1.035) Urine Protein (NEGATIVE) mg/dL Urine Glucose (UA) (NEGATIVE) mg/dL Urine Ketones (NEGATIVE) mg/dL Urine Occult Blood (NEGATIVE) Urine Nitrite (NEGATIVE) Urine Bilirubin (NEGATIVE) Urine Urobilinogen (<2.0) EU/dL Ur Leukocyte Esterase (NEGATIVE) Urine RBC (0-2/HPF) Urine WBC (0-5/HPF) Ur Epithelial Cells (NONE-FEW) Urine Bacteria (NEGATIVE) Hyaline Casts (0-2/LPF) 05/31/18 Range/Units 16:14 WBC (4.0-11.0) K/uL RBC (4.50-5.90) M/uL Hgb (13.0-17.0) g/dL Hct (38.0-50.0) % MCV (80.0-98.0) fL MCH (27.0-32.0) pg MCHC (31.0-37.0) g/dL RDW Std Deviation (28.0-62.0) fl RDW Coeff of Susan (11.0-15.0) % Plt Count (150-400) K/uL MPV (7.40-12.00) fL Neut % (Auto) (48.0-80.0) % Lymph % (Auto) (16.0-40.0) % Lamar % (Auto) (0.0-15.0) % Eos % (Auto) (0.0-7.0) % Baso % (Auto) (0.0-1.5) % Neut # (Auto) (1.4-5.7) K/uL Lymph # (Auto) (0.6-2.4) K/uL Lamar # (Auto) (0.0-0.8) K/uL Eos # (Auto) (0.0-0.7) K/uL Baso # (Auto) (0.0-0.1) K/uL Nucleated RBC % /100WBC Nucleated RBCs # K/uL INR Sodium (136-148) mmol/L Potassium (3.5-5.1) mmol/L Chloride (98-107) mmol/L Carbon Dioxide (21.0-32.0) mmol/L BUN (7.0-18.0) mg/dL Creatinine (0.8-1.3) mg/dL Est Cr Clr Drug Dosing mL/min Estimated GFR (MDRD) ml/min Glucose (74-106) mg/dL Calcium (8.5-10.1) mg/dL Total Bilirubin (0.2-1.0) mg/dL AST (15-37) IU/L ALT (14-63) IU/L Alkaline Phosphatase (46-116) U/L Troponin I (0.000-0.056) ng/mL Total Protein (6.4-8.2) g/dL Albumin (3.4-5.0) g/dL Globulin (2.0-3.5) g/dL Albumin/Globulin Ratio (1.3-2.8) Amylase (25-115) U/L Lipase (73-393) U/L Urine Color YELLOW Urine Appearance CLEAR Urine pH 5.5 (5.0-8.0) Ur Specific [place] 1.025 (1.001-1.035) Urine Protein NEGATIVE (NEGATIVE) mg/dL Urine Glucose (UA) NEGATIVE (NEGATIVE) mg/dL Urine Ketones NEGATIVE (NEGATIVE) mg/dL Urine Occult Blood NEGATIVE (NEGATIVE) Urine Nitrite NEGATIVE (NEGATIVE) Urine Bilirubin NEGATIVE (NEGATIVE) Urine Urobilinogen 0.2 (<2.0) EU/dL Ur Leukocyte Esterase NEGATIVE (NEGATIVE) Urine RBC 0-1 (0-2/HPF) Urine WBC 0-2 (0-5/HPF) Ur Epithelial Cells FEW (NONE-FEW) Urine Bacteria FEW (NEGATIVE) Hyaline Casts 3-5 (0-2/LPF) Meds: Medications Generic Name Dose Route Start Last Admin Trade Name Freq PRN Reason Stop Dose Admin Acetaminophen 650 mg 05/31/18 16:58 Tylenol PO Q4H PRN Pain (mild 1-3) Albuterol 2.5 mg 05/31/18 16:58 Proventil Neb Soln NEB Q2HR PRN Shortness Of Breath/wheezing Aspirin 325 mg 06/01/18 09:00 Ecotrin PO DAILY [facility] Atorvastatin Calcium 40 mg 05/31/18 21:00 05/31/18 20:00 Lipitor PO 40 mg BEDTIME [facility] Administration Carvedilol 12.5 mg 05/31/18 17:00 05/31/18 17:39 Coreg PO 12.5 mg BIDMEALS [facility] Administration Clopidogrel Bisulfate 75 mg 06/01/18 09:00 Plavix PO DAILY [facility] Fluoxetine HCl 40 mg 06/01/18 09:00 Prozac PO DAILY [facility] Hydrochlorothiazide 25 mg 06/01/18 09:00 Hydrochlorothiazide PO DAILY [facility] Insulin Aspart 0 unit 05/31/18 17:00 05/31/18 17:34 Novolog SUBCUT Not Given TIDAC [facility] Protocol Insulin Glargine 36 units 06/01/18 09:00 Lantus Solostar SUBCUT DAILY [facility] Isosorbide Mononitrate 60 mg 06/01/18 09:00 Imdur PO DAILY [facility] Omeprazole 20 mg 06/01/18 07:30 Omeprazole PO ACBREAKFAST [facility] Ondansetron HCl 4 mg 05/31/18 16:58 Zofran IVPUSH Q4H PRN Nausea Sodium Chloride 10 ml 05/31/18 15:23 Saline Flush FLUSH ASDIRECTED PRN Keep Vein Open Sodium Chloride 2.5 ml 05/31/18 15:23 Saline Flush FLUSH ASDIRECTED PRN Keep Vein Open Tramadol HCl 50 mg 05/31/18 17:01 Ultram PO TID PRN Pain Trazodone HCl 50 mg 05/31/18 17:01 Trazodone PO BEDTIME PRN Insomnia Discontinued Medications Generic Name Dose Route Start Last Admin Trade Name Freq PRN Reason Stop Dose Admin Aspirin 324 mg 05/31/18 15:23 05/31/18 15:57 Aspirin PO 05/31/18 15:24 324 mg ONETIME ONE Administration Famotidine 20 mg 05/31/18 15:23 05/31/18 16:02 Pepcid IVPUSH 05/31/18 15:24 20 mg ONETIME ONE Administration Sodium Chloride 1,000 mls @ 999 mls/hr 05/31/18 15:23 05/31/18 15:53 Normal Saline IV 05/31/18 16:23 999 mls/hr .Bolus ONE Administration Ketorolac Tromethamine 30 mg 05/31/18 15:23 05/31/18 16:00 Toradol IVPUSH 05/31/18 15:24 30 mg ONETIME ONE Administration Nitroglycerin 0.4 mg 05/31/18 15:23 05/31/18 16:00 Nitrostat SL 05/31/18 15:24 Not Given ONETIME ONE Potassium Chloride 40 meq 05/31/18 17:00 05/31/18 17:39 Klor-Con M20 PO 05/31/18 17:01 40 meq ONETIME ONE Administration Departure - Departure Time of Disposition: 16:55 Disposition: Refer to Observation Condition: Good Clinical Impression: Acute coronary syndrome Chest pain Qualifiers: Chest pain type: unspecified Qualified Code(s): R07.9 - Chest pain, unspecified - Discharge Information - My Orders Last 24 Hours: My Active Orders 05/31/18 15:23 Oxygen Therapy [RC] ASDIRECTED Pulse Oximetry [RC] ASDIRECTED Sodium Chloride 0.9% [Saline Flush] 10 ml FLUSH ASDIRECTED PRN Sodium Chloride 0.9% [Saline Flush] 2.5 ml FLUSH ASDIRECTED PRN Saline Lock Insert [OM.PC] Stat 05/31/18 16:14 UA W/MICROSCOPIC [URIN] Stat - Assessment/Plan Last 24 Hours: My Active Orders 05/31/18 15:23 Oxygen Therapy [RC] ASDIRECTED Pulse Oximetry [RC] ASDIRECTED Sodium Chloride 0.9% [Saline Flush] 10 ml FLUSH ASDIRECTED PRN Sodium Chloride 0.9% [Saline Flush] 2.5 ml FLUSH ASDIRECTED PRN Saline Lock Insert [OM.PC] Stat 05/31/18 16:14 UA W/MICROSCOPIC [URIN] Stat
[2018-05-31 15:55] LABS: CHLORIDE,CL 102 mmol/L (98-107); SODIUM,NA 139 mmol/L (136-148)
--- NOTE | 2018-05-31 16:13 | CR ---
EXAMINATION: Portable chest radiograph. HISTORY: Respiratory difficulty. Comparison: 05/26/2017. FINDINGS: The trachea is midline. The cardiomediastinal silhouette is within normal limits. No pulmonary infilt rates, effusions or pneumothorax. Median sternotomy wires are noted. Mild chronic interstitial promin ence. Osseous structures appear unremarkable. IMPRESSION: No acute cardiopulmonary process.
[2018-05-31] MEDS ORDERED: Ondansetron 4 MG/2 ML SDV IVPUSH PRN (16:58)
[2018-05-31] MEDS ORDERED: Albuterol 0.083% 2.5 MG/3 ML Neb Soln NEB PRN (16:58)
[2018-05-31] MEDS ORDERED: Acetaminophen 325 MG Tab PO PRN (16:58)
[2018-05-31] MEDS ORDERED: Potassium Chloride 20 MEQ Tab.ER PO ONE (17:00)
[2018-05-31] MEDS ORDERED: traMADol 50 MG Tab PO PRN (17:01)
[2018-05-31] MEDS ORDERED: traZODone 50 MG Tab PO PRN (17:01)
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
[2018-05-31] MEDS: Insulin Aspart 100 Units/ML 3 ML Pen SUBCUT SCH (17:34)
[2018-05-31] MEDS: Carvedilol 12.5 MG Tab PO SCH (17:39)
[2018-05-31] MEDS ORDERED: atorvaSTATin 40 MG Tab PO SCH (21:00)
[2018-06-01] MEDS ORDERED: Omeprazole 20 MG Cap.CR PO SCH (07:30)
[2018-06-01] MEDS: Carvedilol 12.5 MG Tab PO SCH ×2 (07:45→08:00)
[2018-06-01] MEDS: Insulin Aspart 100 Units/ML 3 ML Pen SUBCUT SCH (07:51)
[2018-06-01 08:49] VITALS: BP 135/62
[2018-06-01] MEDS ORDERED: Clopidogrel 75 MG Tab PO SCH (09:00)
[2018-06-01] MEDS ORDERED: Isosorbide Mononitrate 60 MG Tab.ER PO SCH (09:00)
[2018-06-01] MEDS ORDERED: Hydrochlorothiazide 25 MG Tab PO SCH (09:00)
[2018-06-01] MEDS ORDERED: Insulin Glargine,Human Rec. Analog 100 Units/ML 3 ML Pen SUBCUT SCH (09:00)
[2018-06-01] MEDS ORDERED: FLUoxetine 20 MG Cap PO SCH (09:00)
[2018-06-01] MEDS ORDERED: Aspirin 325 MG Tab.EC PO SCH (09:00)
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
== END 2018-06-01 10:15 | disposition home or self-care (01) ==
LOC: MW.ED 15:11 → MW.ICU 16:19 → UNDOADMOB 16:42 → MW.ICU 16:42
PROVIDERS: ADMIT Internal Medicine; ATTEND Internal Medicine
DX: R06.02 Shortness of breath (principal); I25.10 Atherosclerotic heart disease of native coronary artery without angina pectoris; I10 Essential (primary) hypertension; I25.2 Old myocardial infarction; G47.33 Obstructive sleep apnea (adult) (pediatric); G89.29 Other chronic pain; M54.2 Cervicalgia; M54.9 Dorsalgia, unspecified; E11.9 Type 2 diabetes mellitus without complications; F41.8 Other specified anxiety disorders; K21.9 Gastro-esophageal reflux disease without esophagitis; E66.9 Obesity, unspecified; Z68.31 Body mass index [BMI] 31.0-31.9, adult; Z87.828 Personal history of other (healed) physical injury and trauma; Z79.02 Long term (current) use of antithrombotics/antiplatelets; Z79.4 Long term (current) use of insulin; Z79.82 Long term (current) use of aspirin; Z79.899 Other long term (current) drug therapy; Z91.018 Allergy to other foods; Z95.5 Presence of coronary angioplasty implant and graft; Z95.1 Presence of aortocoronary bypass graft; Z99.89 Dependence on other enabling machines and devices; Z74.09 Other reduced mobility; Z98.890 Other specified postprocedural states
CPT/HCPCS: 36415; 71045; 80053; 81001; 82150; 82962; 83690; 84484; 85025; 85610; 93005; 96361; 96374; 96375; 99285; A9270; J1815; J1885; J7040

== ENCOUNTER 2022-02-26 01:37 | Emergency (ER) | payer MEDICARE, OTHER ==
[2022-02-26] MEDS ORDERED: Ondansetron 4 MG/2 ML SDV IVPUSH ONE (01:52)
[2022-02-26] MEDS ORDERED: Sodium Chloride 0.9% 1,000 ML IV ONE ×2 (01:52→01:53)
[2022-02-26] MEDS ORDERED: Sodium Chloride 0.9% 10 ML Syringe FLUSH PRN (01:52)
[2022-02-26] MEDS ORDERED: Sodium Chloride 0.9% 2.5 ML Syringe FLUSH PRN (01:52)
[2022-02-26 02:38] LABS: CARBON DIOXIDE,CO2 24.1 mmol/L (21.0-32.0); POTASSIUM,K 4.1 mmol/L (3.5-5.1)
[2022-02-26 03:56] VITALS: BP 137/66; PULSE 83
== END 2022-02-26 03:56 | disposition home or self-care (01) ==
LOC: MW.ED 01:37
DX: K52.9 Noninfective gastroenteritis and colitis, unspecified (principal); E86.0 Dehydration; I25.10 Atherosclerotic heart disease of native coronary artery without angina pectoris; E78.00 Pure hypercholesterolemia, unspecified; I10 Essential (primary) hypertension; I25.2 Old myocardial infarction; K21.9 Gastro-esophageal reflux disease without esophagitis; E11.9 Type 2 diabetes mellitus without complications; E66.9 Obesity, unspecified; Z68.31 Body mass index [BMI] 31.0-31.9, adult; Z87.891 Personal history of nicotine dependence; Z95.5 Presence of coronary angioplasty implant and graft; Z91.048 Other nonmedicinal substance allergy status; Z79.82 Long term (current) use of aspirin; Z79.4 Long term (current) use of insulin
CPT/HCPCS: 36415; 74176; 80053; 81001; 83690; 83735; 85025; 96374; 99284; J2405; J7030

== ENCOUNTER 2022-08-08 10:13 | Emergency (ER) | payer OTHER, MEDICARE ==
[2022-08-08] MEDS ORDERED: Ondansetron 4 MG/2 ML SDV IVPUSH ONE (10:59)
[2022-08-08] MEDS ORDERED: Morphine 4 MG/ML VIAL IVPUSH ONE (10:59)
[2022-08-08] MEDS ORDERED: Ibuprofen 400 MG Tab PO ONE (14:04)
[2022-08-08] MEDS ORDERED: Lidocaine 5% 700 MG Patch TOP ONE (14:04)
[2022-08-08] MEDS ORDERED: Acetaminophen 325 MG Tab PO ONE (14:04)
[2022-08-08] MEDS ORDERED: Cyclobenzaprine 10 MG Tab PO ONE (14:05)
[2022-08-08 16:26] VITALS: BP 109/55; PULSE 84
== END 2022-08-08 16:26 | disposition home or self-care (01) ==
LOC: MW.ED 10:13
DX: M62.830 Muscle spasm of back (principal); I25.10 Atherosclerotic heart disease of native coronary artery without angina pectoris; E78.00 Pure hypercholesterolemia, unspecified; K21.9 Gastro-esophageal reflux disease without esophagitis; E11.9 Type 2 diabetes mellitus without complications; I25.2 Old myocardial infarction; E66.9 Obesity, unspecified; Z68.30 Body mass index [BMI] 30.0-30.9, adult; Z95.5 Presence of coronary angioplasty implant and graft; Z86.16 Personal history of COVID-19
CPT/HCPCS: 70450; 71045; 72125; 72128; 72131; 72170; 96374; 96375; 99284; A9270; J2270; J2405

== ENCOUNTER 2023-12-28 08:12 | Emergency (ER) | payer OTHER, MEDICARE ==
[2023-12-28] MEDS ORDERED: Sodium Chloride 0.9% 10 ML Syringe FLUSH PRN (08:35)
[2023-12-28] MEDS ORDERED: fentaNYL 50 MCG/ML SDV IM ONE (08:35)
[2023-12-28] MEDS ORDERED: Sodium Chloride 0.9% 2.5 ML Syringe FLUSH PRN (08:35)
[2023-12-28] MEDS ORDERED: Nitroglycerin 2% Oint 1 GM UD Packet TOP ONE (08:37)
[2023-12-28] MEDS ORDERED: fentaNYL 50 MCG/ML SDV IVPUSH ONE (08:41)
[2023-12-28] MEDS ORDERED: Naloxone 0.4 MG/ML SDV IVPUSH PRN (08:41)
[2023-12-28 08:42] LABS: BASOPHILS ABSOLUTE AUTO 0.06 K/uL (0.00-0.20); EOSINOPHILS ABSOLUTE AUTO 0.19 K/uL (0.00-0.45); EOSINOPHILS PERCENT AUTO 3.1 % (0.0-6.0); HEMOGLOBIN 13.4 g/dL (14.0-18.0); IMMATURE GRAN ABSOLUTE AUTO 0.03 K/uL (0.00-0.05); IMMATURE GRAN PERCENT AUTO 0.5 % (0.0-0.4); LYMPHOCYTES ABSOLUTE AUTO 1.21 K/uL (1.00-4.80); LYMPHOCYTES PERCENT AUTO 19.8 % (24.0-44.0); MEAN CORPUSCULAR HEMOGLOBIN 30.1 pg (28.0-32.0); MEAN CORPUSCULAR HGB CONC 34.4 g/dL (32.0-36.0); MEAN CORPUSCULAR VOLUME 87.6 fL (83.0-99.0); MEAN PLATELET VOLUME 11.2 fL (9.4-12.4); MONOCYTES ABSOLUTE AUTO 0.55 K/uL (0.00-0.80); NEUTROPHILS ABSOLUTE AUTO 4.07 K/uL (1.80-7.70); NEUTROPHILS PERCENT AUTO 66.6 % (41.0-71.0); PLATELET COUNT,PLT 144 K/uL (150-400); RED BLOOD CELL COUNT 4.45 M/uL (4.52-5.90); WHITE BLOOD CELL COUNT,WBC 6.11 K/uL (3.9-11.3)
[2023-12-28 09:13] LABS: ALBUMIN 3.7 g/dL (3.4-5.0); BILIRUBIN TOTAL 1.4 mg/dL (0.2-1.0); CALCIUM 8.8 mg/dL (8.5-10.1); CARBON DIOXIDE,CO2 26.3 mmol/L (21.0-32.0); CREATININE 1.1 mg/dL (0.8-1.3); EST CRCL DRUG DOSING (CG) 74.53 mL/min; PROTEIN TOTAL,TP 7.4 g/dL (6.4-8.2)
[2023-12-28 10:20] VITALS: BP 127/65; PULSE 58
== END 2023-12-28 10:38 | disposition home or self-care (01) ==
LOC: MW.ED 08:12
DX: J18.9 Pneumonia, unspecified organism (principal); I10 Essential (primary) hypertension; I25.10 Atherosclerotic heart disease of native coronary artery without angina pectoris; I25.2 Old myocardial infarction; K21.9 Gastro-esophageal reflux disease without esophagitis; E11.9 Type 2 diabetes mellitus without complications; E66.9 Obesity, unspecified; Z86.16 Personal history of COVID-19; Z95.0 Presence of cardiac pacemaker; Z87.891 Personal history of nicotine dependence; Z95.5 Presence of coronary angioplasty implant and graft; Z79.84 Long term (current) use of oral hypoglycemic drugs; Z79.899 Other long term (current) drug therapy; Z79.02 Long term (current) use of antithrombotics/antiplatelets; Z79.4 Long term (current) use of insulin; Z79.82 Long term (current) use of aspirin; Z91.048 Other nonmedicinal substance allergy status; Z68.33 Body mass index [BMI] 33.0-33.9, adult
CPT/HCPCS: 36415; 71045; 80053; 83880; 84484; 85025; 93005; 96374; 99285; A9270; J3010; J3490; 93010; 99284

== ENCOUNTER 2024-04-02 02:06 | Emergency (ER) | payer MEDICARE, OTHER ==
[2024-04-02] MEDS: Sodium Chloride 0.9% 10 ML Syringe FLUSH PRN (02:25)
[2024-04-02] MEDS: Sodium Chloride 0.9% 2.5 ML Syringe FLUSH PRN (02:26)
[2024-04-02 02:28] LABS: BASOPHILS ABSOLUTE AUTO 0.01 K/uL (0.00-0.20); BASOPHILS PERCENT AUTO 0.2 % (0.0-1.0); EOSINOPHILS ABSOLUTE AUTO 0.13 K/uL (0.00-0.45); EOSINOPHILS PERCENT AUTO 2.2 % (0.0-6.0); HEMATOCRIT 45.9 % (42.0-52.0); HEMOGLOBIN 15.5 g/dL (14.0-18.0); IMMATURE GRAN ABSOLUTE AUTO 0.02 K/uL (0.00-0.05); IMMATURE GRAN PERCENT AUTO 0.3 % (0.0-0.4); LYMPHOCYTES ABSOLUTE AUTO 1.25 K/uL (1.00-4.80); LYMPHOCYTES PERCENT AUTO 20.8 % (24.0-44.0); MEAN CORPUSCULAR HEMOGLOBIN 29.6 pg (28.0-32.0); MEAN CORPUSCULAR HGB CONC 33.8 g/dL (32.0-36.0); MEAN CORPUSCULAR VOLUME 87.6 fL (83.0-99.0); MONOCYTES ABSOLUTE AUTO 0.81 K/uL (0.00-0.80); MONOCYTES PERCENT AUTO 13.5 % (0.0-8.0); PLATELET COUNT,PLT 182 K/uL (150-400); RED BLOOD CELL COUNT 5.24 M/uL (4.52-5.90); WHITE BLOOD CELL COUNT,WBC 6.02 K/uL (3.9-11.3)
[2024-04-02 02:56] LABS: A/G RATIO 0.9 (0.9-1.6); ALBUMIN 3.8 g/dL (3.4-5.0); BILIRUBIN TOTAL 2.3 mg/dL (0.2-1.0); CALCIUM 8.9 mg/dL (8.5-10.1); CARBON DIOXIDE,CO2 27.9 mmol/L (21.0-32.0); CREATININE 1.2 mg/dL (0.8-1.3); EST CRCL DRUG DOSING (CG) 68.31 mL/min; POTASSIUM,K 4.3 mmol/L (3.5-5.1); PROTEIN TOTAL,TP 8.1 g/dL (6.4-8.2)
[2024-04-02 02:58] LABS: LACTIC ACID 0.6 mmol/L (0.4-2.0)
[2024-04-02 03:07] LABS: APPEARANCE,URINE CLEAR; BILIRUBIN,URINE NEGATIVE (NEGATIVE); COLOR,URINE YELLOW; GLUCOSE,URINE NEGATIVE (NEGATIVE); KETONES,URINE NEGATIVE (NEGATIVE); LEUKOCYTE ESTERASE,URINE NEGATIVE (NEGATIVE); NITRITE,URINE NEGATIVE (NEGATIVE); OCCULT BLOOD,URINE TRACE-INTACT (NEGATIVE); PROTEIN,URINE NEGATIVE (NEGATIVE); UROBILINOGEN,URINE 0.2 EU/dL (<2.0)
[2024-04-02] MEDS: Ondansetron 4 MG/2 ML SDV IVPUSH ONE (03:09)
[2024-04-02 03:16] LABS: BACTERIA,URINE FEW (NEGATIVE); EPITHELIAL CELLS,URINE FEW (NONE-FEW); WBC,URINE 0-2 (0-5/HPF)
[2024-04-02 05:09] VITALS: BP 161/83; PULSE 79
== END 2024-04-02 05:09 | disposition home or self-care (01) ==
LOC: MW.ED 02:06
DX: R11.2 Nausea with vomiting, unspecified (principal); R19.7 Diarrhea, unspecified; I10 Essential (primary) hypertension; I25.10 Atherosclerotic heart disease of native coronary artery without angina pectoris; I25.2 Old myocardial infarction; Z95.5 Presence of coronary angioplasty implant and graft; K21.9 Gastro-esophageal reflux disease without esophagitis; E11.9 Type 2 diabetes mellitus without complications; E66.9 Obesity, unspecified; Z68.32 Body mass index [BMI] 32.0-32.9, adult; Z91.048 Other nonmedicinal substance allergy status; Z79.82 Long term (current) use of aspirin; Z79.899 Other long term (current) drug therapy; Z79.84 Long term (current) use of oral hypoglycemic drugs; Z79.4 Long term (current) use of insulin; Z95.1 Presence of aortocoronary bypass graft; Z75.8 Other problems related to medical facilities and other health care
CPT/HCPCS: 36415; 74018; 80053; 81001; 83605; 84484; 85025; 93005; 96374; 99284; J2405; J3490; 93010

== ENCOUNTER 2024-05-31 07:03 | Emergency (ER) | payer OTHER, MEDICARE ==
[2024-05-31] MEDS: Morphine 2 MG/ML SYRINGE IVPUSH ONE (07:44)
[2024-05-31] MEDS: Sodium Chloride 0.9% 2.5 ML Syringe FLUSH PRN (07:45)
[2024-05-31] MEDS: Ondansetron 4 MG/2 ML SDV IVPUSH ONE (07:45)
[2024-05-31] MEDS: Sodium Chloride 0.9% 10 ML Syringe FLUSH PRN (07:45)
[2024-05-31 08:08] LABS: BASOPHILS ABSOLUTE AUTO 0.05 K/uL (0.00-0.20); BASOPHILS PERCENT AUTO 0.8 % (0.0-1.0); EOSINOPHILS ABSOLUTE AUTO 0.15 K/uL (0.00-0.45); EOSINOPHILS PERCENT AUTO 2.5 % (0.0-6.0); HEMATOCRIT 34.1 % (42.0-52.0); HEMOGLOBIN 11.9 g/dL (14.0-18.0); IMMATURE GRAN ABSOLUTE AUTO 0.02 K/uL (0.00-0.05); IMMATURE GRAN PERCENT AUTO 0.3 % (0.0-0.4); LYMPHOCYTES ABSOLUTE AUTO 1.02 K/uL (1.00-4.80); LYMPHOCYTES PERCENT AUTO 17.1 % (24.0-44.0); MEAN CORPUSCULAR HEMOGLOBIN 30.7 pg (28.0-32.0); MEAN CORPUSCULAR HGB CONC 34.9 g/dL (32.0-36.0); MEAN CORPUSCULAR VOLUME 88.1 fL (83.0-99.0); MEAN PLATELET VOLUME 11.8 fL (9.4-12.4); MONOCYTES ABSOLUTE AUTO 0.71 K/uL (0.00-0.80); MONOCYTES PERCENT AUTO 11.9 % (0.0-8.0); NEUTROPHILS PERCENT AUTO 67.4 % (41.0-71.0); PLATELET COUNT,PLT 138 K/uL (150-400); RED BLOOD CELL COUNT 3.87 M/uL (4.52-5.90); WHITE BLOOD CELL COUNT,WBC 5.95 K/uL (3.9-11.3)
[2024-05-31 08:27] LABS: INR 1.08 (0.86-1.11); PTT,PARTIAL THROMBOPLSTIN TIME 28.9 SEC (23.9-30.7)
[2024-05-31 08:31] LABS: CALCIUM 8.2 mg/dL (8.5-10.1); CARBON DIOXIDE,CO2 24.8 mmol/L (21.0-32.0); CREATININE 1.1 mg/dL (0.8-1.3); EST CRCL DRUG DOSING (CG) 74.53 mL/min; POTASSIUM,K 4.1 mmol/L (3.5-5.1)
[2024-05-31] MEDS: Lidocaine 4% 1 each Patch TOP STA (09:13)
[2024-05-31 10:26] VITALS: BP 121/60; PULSE 60
== END 2024-05-31 10:25 | disposition home or self-care (01) ==
LOC: MW.ED 07:03
DX: S83.91XA Sprain of unspecified site of right knee, initial encounter (principal); I10 Essential (primary) hypertension; E78.00 Pure hypercholesterolemia, unspecified; I25.10 Atherosclerotic heart disease of native coronary artery without angina pectoris; I25.2 Old myocardial infarction; Z95.5 Presence of coronary angioplasty implant and graft; K21.9 Gastro-esophageal reflux disease without esophagitis; E11.9 Type 2 diabetes mellitus without complications; Z91.048 Other nonmedicinal substance allergy status; Z79.82 Long term (current) use of aspirin; Z79.84 Long term (current) use of oral hypoglycemic drugs; Z79.4 Long term (current) use of insulin; Z79.899 Other long term (current) drug therapy; Z95.1 Presence of aortocoronary bypass graft; Z75.8 Other problems related to medical facilities and other health care; X50.0XXA Overexertion from strenuous movement or load, initial encounter
CPT/HCPCS: 36415; 73562; 73700; 80048; 85025; 85610; 85730; 93971; 96374; 96375; 99284; A9270; J2270; J2405; J3490

== ENCOUNTER 2025-09-01 12:28 | Inpatient (IN) | payer OTHER, MEDICARE ==
[2025-09-01 12:40] LABS: BASOPHILS ABSOLUTE AUTO 0.06 K/uL (0.00-0.20); BASOPHILS PERCENT AUTO 1.1 % (0.0-1.0); EOSINOPHILS ABSOLUTE AUTO 0.12 K/uL (0.00-0.45); EOSINOPHILS PERCENT AUTO 2.3 % (0.0-6.0); IMMATURE GRAN ABSOLUTE AUTO 0.02 K/uL (0.00-0.05); IMMATURE GRAN PERCENT AUTO 0.4 % (0.0-0.4); LYMPHOCYTES ABSOLUTE AUTO 1.11 K/uL (1.00-4.80); LYMPHOCYTES PERCENT AUTO 21.3 % (24.0-44.0); MEAN PLATELET VOLUME 10.7 fL (9.4-12.4); MONOCYTES ABSOLUTE AUTO 0.51 K/uL (0.00-0.80); MONOCYTES PERCENT AUTO 9.8 % (0.0-8.0); NEUTROPHILS ABSOLUTE AUTO 3.40 K/uL (1.80-7.70); NEUTROPHILS PERCENT AUTO 65.1 % (41.0-71.0); NRBC ABSOLUTE 0.00 K/uL (0.00-0.02); NRBC PERCENT 0.0 /100WBC (0.0-0.2); PLATELET COUNT,PLT 183 K/uL (150-400); RED BLOOD CELL COUNT 4.30 M/uL (4.52-5.90); WHITE BLOOD CELL COUNT,WBC 5.22 K/uL (3.9-11.3)
[2025-09-01 12:54] LABS: INR 1.08 (0.86-1.11); PTT,PARTIAL THROMBOPLSTIN TIME 27.9 SEC (23.9-30.7)
[2025-09-01] MEDS: Iopamidol 755 MG/ML 500 ML Multipack Bottle IVPUSH STA (13:06)
[2025-09-01 13:13] LABS: BLOOD UREA NITROGEN,BUN 14 mg/dL (7.0-18.0); CARBON DIOXIDE,CO2 23.4 mmol/L (21.0-32.0); CHLORIDE,CL 103 mmol/L (98-107); CREATININE 1.1 mg/dL (0.8-1.3); GLUCOSE RANDOM 146 mg/dL (74-106); POTASSIUM,K 3.9 mmol/L (3.5-5.1); PROTEIN TOTAL,TP 7.3 g/dL (6.4-8.2); SODIUM,NA 140 mmol/L (136-148)
[2025-09-01 13:14] LABS: A/G RATIO 1.1 (0.9-1.6); ALANINE AMINOTRANSFERASE,ALT 11 IU/L (14-63); ASPARTATE AMNIOTRANSFERASE,AST 27 IU/L (15-37); BILIRUBIN TOTAL 1.7 mg/dL (0.2-1.0)
[2025-09-01 13:15] LABS: ESTIMATED GFR 70 mL/min (>60); ETHANOL BLOOD MEDICAL < 3.0 mg/dL
[2025-09-01 13:43] LABS: APPEARANCE,URINE CLEAR; GLUCOSE,URINE NEGATIVE (NEGATIVE); OCCULT BLOOD,URINE TRACE-INTACT (NEGATIVE)
[2025-09-01 13:51] LABS: EPITHELIAL CELLS,URINE RARE (NONE-FEW)
[2025-09-01 13:52] LABS: AMPHETAMINES SCREEN, URINE NEGATIVE (CUTOFF=500); BUPRENORPHINE SCREEN,URINE NEGATIVE (CUTOFF=10); METHADONE SCREEN, URINE NEGATIVE (CUTOFF=200); METHAMPHETAMINES SCREEN, URINE NEGATIVE (CUTOFF=500); OXYCODONE SCREEN,URINE NEGATIVE (CUT0FF=100); PCP SCREEN,URINE NEGATIVE (CUTOFF=25); THC SCREEN,URINE 20 NG/ML NEGATIVE (CUTOFF=50)
[2025-09-01] MEDS: Ondansetron 4 MG/2 ML SDV IVPUSH ONE (14:16)
[2025-09-01] MEDS: LORazepam 2 MG/ML SDV IVPUSH STA (15:21)
[2025-09-01] MEDS: Magnesium Sulfate 2 GM/50 mL 2 GM in Premix Bag 1 BAG IV ONE (16:19)
[2025-09-01] MEDS ORDERED: 50% Dextrose in Water 50 ML Syringe IVPUSH PRN ×2 (18:23→20:47)
[2025-09-01] MEDS ORDERED: Sodium Chloride 0.9% 2.5 ML Syringe FLUSH PRN (21:58)
[2025-09-01] MEDS ORDERED: Sodium Chloride 0.9% 10 ML Syringe FLUSH PRN (21:58)
[2025-09-02 06:00] LABS: BASOPHILS ABSOLUTE AUTO 0.05 K/uL (0.00-0.20); BASOPHILS PERCENT AUTO 1.0 % (0.0-1.0); EOSINOPHILS ABSOLUTE AUTO 0.15 K/uL (0.00-0.45); EOSINOPHILS PERCENT AUTO 2.9 % (0.0-6.0); IMMATURE GRAN ABSOLUTE AUTO 0.01 K/uL (0.00-0.05); IMMATURE GRAN PERCENT AUTO 0.2 % (0.0-0.4); LYMPHOCYTES ABSOLUTE AUTO 1.06 K/uL (1.00-4.80); LYMPHOCYTES PERCENT AUTO 20.7 % (24.0-44.0); MEAN PLATELET VOLUME 10.9 fL (9.4-12.4); MONOCYTES ABSOLUTE AUTO 0.57 K/uL (0.00-0.80); MONOCYTES PERCENT AUTO 11.2 % (0.0-8.0); NEUTROPHILS ABSOLUTE AUTO 3.27 K/uL (1.80-7.70); NEUTROPHILS PERCENT AUTO 64.0 % (41.0-71.0); NRBC ABSOLUTE 0.00 K/uL (0.00-0.02); NRBC PERCENT 0.0 /100WBC (0.0-0.2); PLATELET COUNT,PLT 157 K/uL (150-400); RED BLOOD CELL COUNT 4.03 M/uL (4.52-5.90); WHITE BLOOD CELL COUNT,WBC 5.11 K/uL (3.9-11.3)
[2025-09-02 06:26] LABS: BLOOD UREA NITROGEN,BUN 11.0 mg/dL (7.0-18.0); CARBON DIOXIDE,CO2 25.8 mmol/L (21.0-32.0); CHLORIDE,CL 105.0 mmol/L (98-107); CREATININE 0.9 mg/dL (0.8-1.3); EST CRCL DRUG DOSING (CG) 83.72 mL/min; GLUCOSE RANDOM 121.0 mg/dL (74-106); POTASSIUM,K 3.7 mmol/L (3.5-5.1); SODIUM,NA 140.0 mmol/L (136-148)
[2025-09-02 06:35] LABS: ESTIMATED GFR 90.0 mL/min (>60)
[2025-09-02] MEDS: Isosorbide Mononitrate 60 MG Tab.ER PO SCH (08:28)
[2025-09-02] MEDS: Insulin Glargine,Human Rec. Analog 100 Units/ML 3 ML Pen SUBCUT SCH (09:00)
[2025-09-03 06:03] LABS: BASOPHILS ABSOLUTE AUTO 0.04 K/uL (0.00-0.20); BASOPHILS PERCENT AUTO 0.7 % (0.0-1.0); EOSINOPHILS ABSOLUTE AUTO 0.16 K/uL (0.00-0.45); EOSINOPHILS PERCENT AUTO 2.8 % (0.0-6.0); IMMATURE GRAN ABSOLUTE AUTO 0.03 K/uL (0.00-0.05); IMMATURE GRAN PERCENT AUTO 0.5 % (0.0-0.4); LYMPHOCYTES ABSOLUTE AUTO 0.96 K/uL (1.00-4.80); LYMPHOCYTES PERCENT AUTO 16.8 % (24.0-44.0); MEAN PLATELET VOLUME 10.8 fL (9.4-12.4); MONOCYTES ABSOLUTE AUTO 0.60 K/uL (0.00-0.80); MONOCYTES PERCENT AUTO 10.5 % (0.0-8.0); NEUTROPHILS ABSOLUTE AUTO 3.92 K/uL (1.80-7.70); NEUTROPHILS PERCENT AUTO 68.7 % (41.0-71.0); NRBC ABSOLUTE 0.00 K/uL (0.00-0.02); NRBC PERCENT 0.0 /100WBC (0.0-0.2); PLATELET COUNT,PLT 158 K/uL (150-400); RED BLOOD CELL COUNT 4.34 M/uL (4.52-5.90); WHITE BLOOD CELL COUNT,WBC 5.71 K/uL (3.9-11.3)
[2025-09-03 06:32] LABS: BLOOD UREA NITROGEN,BUN 14.0 mg/dL (7.0-18.0); CARBON DIOXIDE,CO2 26.9 mmol/L (21.0-32.0); CHLORIDE,CL 106.0 mmol/L (98-107); CHOLESTEROL HDL 35.0 mg/dL (40-60); CHOLESTEROL LDL CALCULATED 91.0 mg/dL (60-180); CHOLESTEROL TOTAL 141.0 mg/dL (50-200); CREATININE 0.9 mg/dL (0.8-1.3); EST CRCL DRUG DOSING (CG) 83.72 mL/min; GLUCOSE RANDOM 141.0 mg/dL (74-106); POTASSIUM,K 4.0 mmol/L (3.5-5.1); SODIUM,NA 141.0 mmol/L (136-148); VLDL CHOLESTEROL 15.0 mg/dL (5-55)
[2025-09-03 06:35] LABS: ESTIMATED GFR 90.0 mL/min (>60)
[2025-09-03 08:45] VITALS: BP 150/71; PULSE 57
== END 2025-09-03 10:00 | disposition home or self-care (01) | DRG 305 ==
LOC: MW.ED 12:28 → MW.MS 16:11 → MW.ED 16:52 → MW.MS 09-02 14:43 → OBSVTOIN 09-02 14:43
PROVIDERS: ADMIT Internal Medicine; ATTEND Internal Medicine
PROC: 5A09357 Assistance with Respiratory Ventilation, Less than 24 Consecutive Hours, Continuous Positive Airway Pressure (ICD-10-PCS; principal; 2025-09-01)
DX: I16.9 Hypertensive crisis, unspecified (principal); G45.9 Transient cerebral ischemic attack, unspecified; R07.9 Chest pain, unspecified; R06.02 Shortness of breath; I10 Essential (primary) hypertension; K21.9 Gastro-esophageal reflux disease without esophagitis; M54.9 Dorsalgia, unspecified; E86.0 Dehydration; I25.119 Atherosclerotic heart disease of native coronary artery with unspecified angina pectoris; G47.33 Obstructive sleep apnea (adult) (pediatric); G89.29 Other chronic pain; F41.9 Anxiety disorder, unspecified; E11.9 Type 2 diabetes mellitus without complications; F32.A Depression, unspecified; E66.9 Obesity, unspecified; E78.00 Pure hypercholesterolemia, unspecified; Z96.649 Presence of unspecified artificial hip joint; Z96.659 Presence of unspecified artificial knee joint; I25.2 Old myocardial infarction; Z68.33 Body mass index [BMI] 33.0-33.9, adult; Z95.5 Presence of coronary angioplasty implant and graft; Z98.890 Other specified postprocedural states; Z79.84 Long term (current) use of oral hypoglycemic drugs; Z79.82 Long term (current) use of aspirin; Z88.8 Allergy status to other drugs, medicaments and biological substances; Z79.4 Long term (current) use of insulin; Z79.899 Other long term (current) drug therapy
CPT/HCPCS: 36415 ×2; 70450; 70496; 70498; 71045; 80048; 80053; 80305; 80307; 81001; 82947 ×3; 83690; 83735 ×2; 84484 ×3; 85025 ×2; 85610; 85730; 93005; 94660; 96361; 96365; 96375; 99285; A9270 ×12; G0378 ×3; J1815; J2060; J2405; J3475; J7030; Q9967; 80061; 83036; 93010; 99222; 99232; 99238